=== PATIENT | male | born 1950 | race Caucasian/White ===

== ENCOUNTER → 2017-06-25 | Outpatient (CLI) | payer OTHER ==
--- NOTE | 2017-06-26 01:10 | RAD ---
Left lower extremity venous Doppler ultrasound History: lt calf cramping today, c spine surgery 4 days ago Comparison: None. Procedure: Color flow Doppler, Doppler spectral analysis, and 2D images are obtained with and without compression in the area of the common femoral vein, superficial femoral vein - femoral vein junction, main femoral vein (superficial femoral vein) and popliteal vein. Veins of the proximal calf are also imaged. Findings: There is normal color flow, augmentation, and compressibility of all visualized vein segments. No evidence of deep venous thrombus is present. IMPRESSION: No evidence of left lower extremity deep venous thrombosis. Electronically signed by: Kem Schaffer MD (06/26/2017 1:06 AM) [id number]
== END | disposition home or self-care (01) ==
LOC: RAD 23:20
PROVIDERS: ATTEND Internal Medicine
DX: M79.662 Pain in left lower leg (principal); Z98.890 Other specified postprocedural states
CPT/HCPCS: 93971